=== PATIENT | female | born 1965 | race African-American/Black ===

== ENCOUNTER 2024-04-19 21:46 | Emergency (ER) | payer OTHER ==
[2024-04-19 22:06] VITALS: BP 154/84; PULSE 77; RESP 18; TEMP 98.5; BMI 18.6
[2024-04-19] MEDS ORDERED: DIPHTH,PERTUSS(ACELL),TET 0.5 ML DISP.SYRIN IM ONE (22:37)
[2024-04-19] MEDS: DIPHTH,PERTUSS(ACELL),TET 0.5 ML DISP.SYRIN IM ONE (22:40)
== END 2024-04-20 02:30 | disposition home or self-care (01) ==
LOC: JER 21:46
PROC: 0HQ0XZZ Repair Scalp Skin, External Approach (ICD-10-PCS; principal; 2024-04-19)
PROC: 3E0234Z Introduction of Serum, Toxoid and Vaccine into Muscle, Percutaneous Approach (ICD-10-PCS; 2024-04-19)
DX: S01.01XA Laceration without foreign body of scalp, initial encounter (principal); W01.198A Fall on same level from slipping, tripping and stumbling with subsequent striking against other object, initial encounter; Z23 Encounter for immunization
CPT/HCPCS: 70450-TC; 72125-TC; 82962; 90715; 93005; 93010; 99285-25

== ENCOUNTER 2024-05-03 14:08 | Emergency (ER) | payer SELFPAY ==
[2024-05-03 14:20] VITALS: BP 138/81; PULSE 70; RESP 16; TEMP 98.8; BMI 18.3
== END 2024-05-03 16:39 | disposition home or self-care (01) ==
LOC: JERFT 14:08 → JER 14:08 → JERFT 16:39
DX: Z48.02 Encounter for removal of sutures (principal)
CPT/HCPCS: 99281-25